=== PATIENT | male | born 1975 | race Caucasian/White ===

== ENCOUNTER 2017-01-12 19:08 | Inpatient (IN) | payer BC ==
[~2017-01-12] VITALS: Ht 170.2 cm; Wt 72.6 kg
[2017-01-12] MEDS ORDERED: HYDROMORPHONE 1 MG/1 ML DISP.SYRIN IV ONE ×2 (20:15→21:45)
[2017-01-12] MEDS ORDERED: IV NORMAL SALINE 1000 ML BAG IV ONE ×2 (20:15→21:45)
[2017-01-12] MEDS ORDERED: ONDANSETRON 4 MG/2 ML VIAL IV ONE (20:15)
[2017-01-12 20:26] LABS: BASOPHILS # (AUTO) 0.2 K/uL (0.0-8.0); BASOPHILS % (AUTO) 0.8 % (0.0-2.0); EOSINOPHILS % (AUTO) 0.2 % (0.0-7.0); HEMATOCRIT 48.3 % (40-50); HEMOGLOBIN 16.5 G/DL (14.0-18.0); LYMPHOCYTES # (AUTO) 1.1 K/UL (0.8-4.8); LYMPHOCYTES % (AUTO) 5.7 % (20.5-51.5); MEAN CORPUSCULAR HEMOGLOBIN 30.1 UUG (27.0-31.0); MEAN CORPUSCULAR HGB CONC 34 g/dL (32.0-37.0); MEAN CORPUSCULAR VOLUME 88.2 FL (82.0-92.0); MONOCYTES % (AUTO) 5.1 % (0.0-11.0); NEUTROPHILS # (AUTO) 17.4 K/UL (1.8-8.9); NEUTROPHILS % (AUTO) 88.2 % (38.5-71.5); PLATELET COUNT (AUTO) 213 K/UL (150-450); RED BLOOD CELL COUNT(AUTO) 5.48 MIL/UL (4.7-6.1); RED CELL DISTRIBUTION WIDTH 12.6 % (11.5-14.5); WHITE BLOOD COUNT (AUTO) 19.7 K/UL (4.0-11.2)
[2017-01-12] MEDS ORDERED: HYDROMORPHONE 1 MG/1 ML DISP.SYRIN ONE ×2 (20:27→22:21)
[2017-01-12] MEDS ORDERED: ONDANSETRON 4 MG/2 ML VIAL ONE (20:27)
[2017-01-12 20:29] LABS: CALCIUM 9.1 mg/dL (8.5-10.1); POTASSIUM 4.5 mmol/L (3.5-5.1)
--- NOTE | 2017-01-12 20:29 | NUR ---
Pt taken to CT. Urine sample obtained, taken to lab.
--- NOTE | 2017-01-12 20:29 | NUR ---
Pt c/o difuse ABD pain, 9, mostly upper Qs, BSx4Qs, very tender LRQ, started at work around 0900 today, denies vomiting. No other complaints, minor distress noted.
[2017-01-12 20:30] LABS: CREATININE 1.4 mg/dL (0.6-1.3)
[2017-01-12 20:43] LABS: *BILIRUBIN,URIN NEGATIVE (NEGATIVE); *BLOOD, URINE NEGATIVE (NEGATIVE); *CLARITY,URINE CLEAR (CLEAR); *COLOR,URINE YELLOW (YELLOW); *KETONES,URINE 1+ (NEGATIVE); *PROTEIN,URINE NEGATIVE (NEGATIVE); *UROBILINOGEN,URINE 0.2 E.U./dl (NORMAL); LEUKOCYTE ESTERASE ,URINE NEGATIVE (NEGATIVE); NITRITE, URINE NEGATIVE (NEGATIVE); PH,URINE 5.5 (5.0-8.0); UGLUCOSE NEGATIVE (NEGATIVE)
[2017-01-12 20:45] LABS: ALBUMIN 4.4 g/dL (3.4-5.0); BILIRUBIN,DIRECT 0.1 mg/dL (0.0-0.2); BILIRUBIN,TOTAL 0.8 mg/dL (0.2-1.0); TOTAL PROTEIN, SERUM 7.7 g/dL (6.4-8.2)
[2017-01-12 20:48] LABS: WBC,URINE NONE SEEN /HPF (0-3)
[2017-01-12 20:51] LABS: BAND % (MANUAL) 8 % (0-10); LYMPHOCYTES % (MANUAL) 5 % (20-40); MONOCYTES % (MANUAL) 6 % (2-10); NEUTROPHILS % (MANUAL) 81 % (42-75)
[2017-01-12 20:52] LABS: PLATELET ESTIMATE ADEQUATE
--- NOTE | 2017-01-12 21:43 | NUR ---
AYAAN speaking with Dr. Pro (SURGERY). Addendum: 01/12/17 at 2144 by LEXI Surgery scheduled for AM.
[2017-01-12] MEDS ORDERED: PIPERACILLIN SODIUM/TAZOBACTAM 3.375 G in IV DEXTROSE 5% 50 ML IV ONE (21:45)
--- NOTE | 2017-01-12 22:00 | NUR ---
Pain had gone down to 3/10, now going back up.
[2017-01-12] MEDS ORDERED: PIPERACILLIN SODIUM/TAZO 3.375 GM VIAL ONE (22:10)
--- NOTE | 2017-01-12 22:44 | NUR ---
TRANSFERED TO 2ND FLOOR MED SURG
--- NOTE | 2017-01-12 23:00 | NUR ---
RECEIVED PT FROM ER BIB STAFF VIA JULES, IN NO ACUTE DISTRESS. PT A/OX4, AMBULATED TO ROOM IN STEADY GAIT. IV TO R AC INTACT AND PATENT. PT REPORTS PAIN LEVEL OF 4/10 TOLERABLE AT THIS TIME, PER PT'S REPORT. MADE COMFORTABLE. DENIES N/V AT THIS TIME. ALL NEEDS ATTENDED AT THIS MOMENT. CALL LIGHT IN REACH AND SAFETY MEASURES IN PLACE. WILL CONTINUE MONITORING.
[2017-01-12 23:05] VITALS: BP 127/78
[2017-01-12] MEDS ORDERED: IV D5/ 0.9% NACL 1,000 ML IV PRN (23:30)
[2017-01-12] MEDS ORDERED: MORPHINE SULFATE 2 MG/1 ML DISP.SYRIN IV PRN (23:30)
[2017-01-12] MEDS ORDERED: ACETAMINOPHEN 650 MG SUPP.RECT RC PRN (23:30)
[2017-01-12] MEDS ORDERED: ONDANSETRON 4 MG/2 ML VIAL IV PRN (23:30)
[2017-01-13] VITALS (8 sets, daily range): BP systolic 107–110; BP diastolic 50–67
--- NOTE | 2017-01-13 00:01 | NUR ---
PT C/O SEVERE ABDOMINAL PAIN REQUESTING PAIN MED, PRN MORPHINE 2MG GIVEN ORDERED, WILL REASSESS.
--- NOTE | 2017-01-13 01:12 | NUR ---
PT CONTINUES C/O SEVERE PAIN, STATING "ITS STRONGER," MOANING, AND WITH OCCASIONAL FACIAL GRIMACES, PAIN MEDICATION NOT EFFECTIVE. MD JOHN ISSA MADE AWARE WITH NEW ORDERS RECEIVED. WILL CARRY OUT.
[2017-01-13] MEDS ORDERED: HYDROMORPHONE 1 MG/1 ML DISP.SYRIN ONE ×2 (01:27→05:24)
[2017-01-13] MEDS: HYDROMORPHONE 1 MG/1 ML DISP.SYRIN IV PRN ×3 (01:28→14:34)
[2017-01-13] MEDS ORDERED: BUPIVACAINE/EPI PF 0.25% 30 ML VIAL ONE (05:34)
--- NOTE | 2017-01-13 05:45 | NUR ---
PT TAKEN TO SURGERY BY STAFF. PT IS IN NO ACUTE DISTRESS. PRN PAIN MED GIVEN PER PT'S REQUEST. CONSENT SIGNED AND PLACED IN CHART. KEPT NPO AFTER MIDNIGHT. PT TAKEN BY STAFF VIA PT'S ROOM BED.
[2017-01-13 06:00] LABS: BASOPHILS # (AUTO) 0.1 K/uL (0.0-8.0); EOSINOPHILS # (AUTO) 0.1 K/uL (0.0-0.7); EOSINOPHILS % (AUTO) 0.4 % (0.0-7.0); HEMOGLOBIN 15.3 G/DL (14.0-18.0); LYMPHOCYTES # (AUTO) 1.9 K/UL (0.8-4.8); WHITE BLOOD COUNT (AUTO) 13.9 K/UL (4.0-11.2)
[2017-01-13] MEDS ORDERED: FENTANYL CITRATE 100 MCG/2 ML AMPUL ONE (06:00)
[2017-01-13] MEDS ORDERED: MIDAZOLAM HCL 2 MG/2 ML VIAL ONE (06:01)
[2017-01-13] MEDS ORDERED: ROCURONIUM BROMIDE 50 MG/5 ML VIAL ONE (06:01)
[2017-01-13 06:07] LABS: ALBUMIN 3.4 g/dL (3.4-5.0); BILIRUBIN,TOTAL 1.1 mg/dL (0.2-1.0); CALCIUM 8.2 mg/dL (8.5-10.1); MAGNESIUM 1.6 mg/dL (1.8-2.4); PHOSPHOROUS 3.3 mg/dL (2.5-4.9); POTASSIUM 3.9 mmol/L (3.5-5.1); TOTAL PROTEIN, SERUM 6.4 g/dL (6.4-8.2)
[2017-01-13 06:09] LABS: BASOPHILS % (AUTO) 0.4 % (0.0-2.0); HEMATOCRIT 43.8 % (40-50); LYMPHOCYTES % (AUTO) 13.6 % (20.5-51.5); MEAN CORPUSCULAR HEMOGLOBIN 30.6 UUG (27.0-31.0); MEAN CORPUSCULAR HGB CONC 35 g/dL (32.0-37.0); MEAN CORPUSCULAR VOLUME 87.6 FL (82.0-92.0); MONOCYTES # (AUTO) 0.9 K/UL (0.1-1.30); MONOCYTES % (AUTO) 6.7 % (0.0-11.0); NEUTROPHILS # (AUTO) 10.9 K/UL (1.8-8.9); NEUTROPHILS % (AUTO) 78.9 % (38.5-71.5); PLATELET COUNT (AUTO) 188 K/UL (150-450); RED BLOOD CELL COUNT(AUTO) 5.01 MIL/UL (4.7-6.1); RED CELL DISTRIBUTION WIDTH 12.8 % (11.5-14.5)
[2017-01-13 06:24] LABS: CREATININE 1.4 mg/dL (0.6-1.3)
--- NOTE | 2017-01-13 07:00 | NUR ---
PT IS NOT IN THE ROOM, STILL IN SURGERY
[2017-01-13] MEDS ORDERED: PANTOPRAZOLE SODIUM 40 MG VIAL IV SCH (07:02)
--- NOTE | 2017-01-13 08:30 | NUR ---
NO S/S OF RESPIRATORY DISTRESS NOTED. WOUND DRESSING IS INTACT/PATENT. INCENTIVE SPIROMETRY IS EDUCATED AND PT PERFORMED INCENTIVE SPIROMETER EXERCISES. DVT PUMPS ON. NO PAIN REPORTED, IV INTACT/PATENT. WILL CONTINUE TO MONITOR.
[2017-01-13] MEDS ORDERED: NEOSTIGMINE METHYLSULFATE 10 MG/10 ML VIAL IV ONE (09:41)
[2017-01-13] MEDS ORDERED: ONDANSETRON 4 MG/2 ML VIAL IV ONE (09:41)
[2017-01-13] MEDS ORDERED: GLYCOPYRROLATE 0.2 MG/ML VIAL MC ONE (09:41)
[2017-01-13] MEDS ORDERED: IV NORMAL SALINE 1000 ML BAG IV ONE (09:42)
[2017-01-13] MEDS ORDERED: LIDOCAINE HCL 1% 20 ML VIAL MC ONE (09:42)
[2017-01-13] MEDS ORDERED: KETOROLAC TROMETHAMINE 30 MG INJ IM ONE (09:42)
[2017-01-13] MEDS ORDERED: CEFAZOLIN 1 G VIAL MC ONE (09:43)
[2017-01-13] MEDS: MAGNESIUM SULFATE/D5W 100 ML IV SCH ×2 (12:04→13:09)
[2017-01-13] MEDS ORDERED: CEFAZOLIN 1 G in PREMIXED 1 EACH IV SCH (14:00)
--- NOTE | 2017-01-13 18:09 | NUR ---
The patient will be discharged today back home [[address], [place] [address]] [address] Sandoval. He and his were in agreement with his discharge. His will be picking him up via private car. He doesn't have a local PCP but named his father at [place], [place] as his physician. Recommended for him to call his insurance for a list of in-network physicians. Also provided him with the information for Dr. Sandoval and Dr. Pro. He and his are aware to make a follow-up appointment with Dr. Pro. His RN, Kim, is aware of his discharge.
[2017-01-13] MEDS ORDERED: PROPOFOL 200 MG/20 ML BOTTLE IV ONE (18:59)
[2017-01-13] MEDS ORDERED: SEVOFLURANE 250 ML BOTTLE IH ONE (18:59)
--- NOTE | 2017-01-13 19:00 | NUR ---
DISCHARGE NOTE: NO S/S OF RESPIRATORY DISTRESS NOTED. DRESSING IS INTACT. IV/WRISTBAND IS REMOVED. EDUCATION IS PROVIDED. PRESCRIPTION IS GIVEN, PHARMACIST PROVIDED EDUCATION IN REGARDS OF THE MEDICATION. DR. ARROYO F/U OFFICE IN 1 WEEK. NO PAIN REPORTED. PT LEFT VIA PRIVATE CAR WITH .
== END 2017-01-13 19:00 | disposition home or self-care (01) | DRG 341 ==
LOC: ER 19:11 → MED 22:38
PROVIDERS: ADMIT Internal Medicine; ATTEND Internal Medicine
PROC: 0DTJ4ZZ Resection of Appendix, Percutaneous Endoscopic Approach (ICD-10-PCS; principal; 2017-01-12)
DX: K35.80 Unspecified acute appendicitis (principal); N17.0 Acute kidney failure with tubular necrosis; R03.0 Elevated blood-pressure reading, without diagnosis of hypertension; R00.1 Bradycardia, unspecified
CPT/HCPCS: 36415; 71010; 83690; 83735; 84100; 85025; 85730; C9113; J0690; J1170; J1885; J2250; J2405; J2543; J2710; J3010; J3475; J3490; J7030; J7042; J7060